=== PATIENT | male | born 1955 | race Caucasian/White ===

== ENCOUNTER 2018-11-14 09:44 | Outpatient (CLI) | payer OTHER ==
--- NOTE | 2018-11-14 11:50 | MRI ---
MRI CERVICAL SPINE WITHOUT CONTRAST: HISTORY: Cervical radiculopathy. Pain radiates down the right upper extremity with numbness in the th ird through fifth digit. Symptoms x3 weeks. COMPARISON: None FINDINGS: Appropriate T1 marrow signal intensity of the cervical vertebra. Cervical spine vertebral body heigh t is maintained. No fracture. No significant STIR hyperintensity to suggest vertebral body edema or ligamentous injury Visualized brain parenchyma, cervical medullary junction, cervical cord and the upper thoracic cord h ave a normal size and signal intensity. C2-C3: No significant central canal stenosis or significant neural foraminal narrowing C3-C4: Central disc protrusion effacing the ventral subarachnoid space. There is mild deformity of th e midline spinal cord, without T2 hyperintensity. Mild to moderate central canal stenosis. Moderate right and [id number] left neural narrowing due to uncovertebral hypertrophy C4-C5: Broad-based disc bulge effacing the subarachnoid space. There is flattening and deformity of t he cervical cord. No cord signal abnormality. Mild to moderate central canal stenosis. Mild bilateral foraminal narrowing due to uncal vertebral hypertrophy. C5-C6: Broad-based disc bulge abuts the thecal sac. Subarachnoid space is maintained. Minimal contact upon the ventral cord. Mild central canal stenosis. No cord hyperintensity. Moderate right and mild left foraminal narrowing due to uncovertebral hypertrophy. C6-C7: Central disc protrusion abuts the thecal sac. Subarachnoid space is maintained. No significant central canal stenosis. Right neural foramen is patent. Minimal left foraminal narrowing due to uncovertebral hypertrophy C7-T1: Central disc protrusion abuts the thecal sac. Mild central canal stenosis. Bilaterally, neural foramina are patent. IMPRESSION: Degenerative changes of the cervical spine as detailed above. Transcribed Date/Time: 11/14/2018 12:39 PM
== END 2018-11-14 09:45 | disposition home or self-care (01) ==
LOC: SCSMRI 09:44
PROVIDERS: ATTEND Orthopaedic Surgery
DX: M47.22 Other spondylosis with radiculopathy, cervical region (principal)
CPT/HCPCS: 72141